=== PATIENT | female | born 1990 | race Hispanic/Latino ===

== ENCOUNTER 2024-07-28 14:36 | Emergency (ER) | payer SELFPAY | END 2024-07-28 15:12 | disposition home or self-care (01) | LOC: CSHERS 14:36 | DX: N61.0 Mastitis without abscess (principal); Z75.8 Other problems related to medical facilities and other health care; Z55.6 Problems related to health literacy | CPT/HCPCS: 99283 ==

== ENCOUNTER 2024-08-06 22:42 | Emergency (ER) | payer SELFPAY ==
[2024-08-06] MEDS ORDERED: Morphine 4 MG/ML VIAL ONE (23:49)
== END 2024-08-07 01:10 | disposition home or self-care (01) ==
LOC: CSHERS 22:42
DX: R07.9 Chest pain, unspecified (principal); R68.83 Chills (without fever)
CPT/HCPCS: 71045; 93005; 96372; J2272